=== PATIENT | male | born 1940 | race Caucasian/White ===

== ENCOUNTER 2017-06-13 10:07 | Emergency (ER) | payer OTHER ==
[~2017-06-13] VITALS: Ht 172.7 cm; Wt 73.9 kg
--- NOTE | ~2017-06-13 | EKG ---
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 : 1940 Requested By: Dale Ledesma Order Number: [id number] MD: Shawn Kim Measurements Intervals [place] Rate: 80 P: 10 HI: 126 QRS: 13 QRSD: 114 T: 5 QT: 378 QTc: 436 Interpretive Statements Sinus rhythm Multiple ventricular premature complexes Early R-wave progression Compared to ECG 05/29/2017 18:17:23 No significant change was found Electronically Signed On 06-13-2017 15:58:32 [employer] by Shawn Kim [email or web address] <ELECTRONICALLY SIGNED> By: Shawn Kim MD, [facility] 06/13/17 1558 [id number] [id number] Shawn Kim MD, FACC /EPI
[~2017-06-13 10:07] MED LIST: ASPIRIN81 M2 PO; CEPHALEXIN500 MG; HYDROCHLOROTH12.5 M2 PO; HYDROCHLOROTHIA25 M2 PO; NORCO 5-325 TA1 EACH PO; PEPCID20 MG PO; TOPROL XL25 MG PO; TRAMADOL 50 MG50 MG PO; TRIAMTERENE-HC1 EAC1 PO; TYLENOL325 MG PO
[2017-06-13 10:33] LABS: HEMATOCRIT 40.9 % (42.0-52.0); MCH 32.9 pg (26.0-34.0); MCHC 34.4 g/dL (28.0-37.0); MCV 95.7 fL (80.0-100.0); RBC 4.27 mil/uL (4.50-6.00); RDW 13.6 % (10.5-14.5); WBC 7.2 thou/uL (4.0-11.0)
[2017-06-13 10:43] LABS: ANION GAP 6 mmol/L (7-16); BUN 17 mg/dL (7-18); CALCIUM 9.2 mg/dL (8.5-10.1); CHLORIDE 104 mmol/L (98-107); CO2 28 mmol/L (21-32); GLUCOSE 112 mg/dL (74-106); POTASSIUM 3.8 mmol/L (3.5-5.1); SODIUM 138 mmol/L (136-145)
[2017-06-13 10:52] LABS: TROPONIN-I < 0.04 ng/mL (<0.06)
== END 2017-06-13 14:02 | disposition home or self-care (01) ==
LOC: ER 10:07
PROVIDERS: Emergency Medicine
DX: R42 Dizziness and giddiness (principal); I10 Essential (primary) hypertension; Z98.890 Other specified postprocedural states; Z90.49 Acquired absence of other specified parts of digestive tract; Z88.6 Allergy status to analgesic agent; Z91.010 Allergy to peanuts; Z88.0 Allergy status to penicillin; Z91.013 Allergy to seafood

== ENCOUNTER 2018-09-21 23:05 | Emergency (ER) | payer OTHER ==
[~2018-09-21] VITALS: Ht 170.2 cm; Wt 71.2 kg
[2018-09-21 23:58] LABS: HEMOGLOBIN 14.3 gm/dL (14.0-18.0); MCH 33.2 pg (26.0-34.0); MCV 97.6 fL (80.0-100.0); PLATELET COUNT 188 thou/uL (150-400); RDW 13.7 % (10.5-14.5); WBC 6.3 thou/uL (4.0-11.0)
[2018-09-22 00:02] LABS: ANION GAP 7 mmol/L (7-16); BUN 21 mg/dL (7-18); CALCIUM 9.1 mg/dL (8.5-10.1); CHLORIDE 103 mmol/L (98-107); CO2 28 mmol/L (21-32); GLUCOSE 106 mg/dL (74-106); SODIUM 138 mmol/L (136-145)
[2018-09-22 00:10] LABS: ALBUMIN 3.9 g/dL (3.4-5.0); SGOT 19 U/L (15-37); SGPT 23 U/L (30-65); TOTAL BILIRUBIN 0.3 mg/dL (<0.1-1.0); TOTAL PROTEIN 7.3 g/dL (6.4-8.2); TROPONIN-I <0.06 ng/mL (<0.06)
[2018-09-22 00:21] LABS: URINE BILIRUBIN NEGATIVE (Negative); URINE BLOOD NEGATIVE (Negative); URINE CLARITY CLEAR; URINE COLOR YELLOW; URINE GLUCOSE-RANDOM* NEGATIVE (Negative); URINE KETONES NEGATIVE (Negative); URINE LEUKOCYTES-REFLEX NEGATIVE (Negative); URINE NITRITE-REFLEX NEGATIVE (Negative); URINE PROTEIN (DIPSTICK) NEGATIVE (Negative); URINE SPECIFIC GRAVITY <= 1.005 (1.005-1.035); URINE UROBILINOGEN 0.2 E.U./dl (0.2-1.0)
[2018-09-22 00:52] LABS: ABSOLUTE NEUTROPHILS 4.1 thou/uL (1.4-8.2)
[2018-09-22 00:53] LABS: ANISOCYTOSIS 1+; PLATELET ESTIMATE NORMAL; POLYCHROMASIA 1+
[2018-09-22 03:20] VITALS: BP 153/67
--- NOTE | 2018-09-22 08:06 | EKG ---
[facility] [place] [address] ELECTROCARDIOGRAM REPORT Name: DEEPIKA ABREU 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 : 1940 Requested By: Jerord Mason Order Number: [id number] MD: Shawn Kim Measurements Intervals [place] Rate: 76 P: 0 CT: 133 QRS: -10 QRSD: 108 T: -3 QT: 361 QTc: 406 Interpretive Statements Sinus rhythm Multiform ventricular premature complexes Abnormal R-wave progression, early transition Compared to ECG 06/13/2017 10:18:43 No significant changes Electronically Signed On 09-22-2018 8:06:42 CDT by Shawn Kim [email or web address] ��������������������������������������������� <ELECTRONICALLY SIGNED> ���������������������������������������� By: Shawn Kim MD, [facility] ��������������������������������������������� 09/22/18 0806 Shawn Kim MD, FAC /EPI
== END 2018-09-22 03:20 | disposition short-term general hospital (02) ==
LOC: ER 23:05
PROVIDERS: Emergency Medicine
DX: I62.00 Nontraumatic subdural hemorrhage, unspecified (principal); D18.1 Lymphangioma, any site; I10 Essential (primary) hypertension; Z96.641 Presence of right artificial hip joint; Z88.0 Allergy status to penicillin; Z88.6 Allergy status to analgesic agent; Z91.013 Allergy to seafood; Z91.010 Allergy to peanuts; Z91.041 Radiographic dye allergy status; Z91.018 Allergy to other foods

== ENCOUNTER 2018-10-30 23:40 | Emergency (ER) | payer OTHER ==
[~2018-10-30] VITALS: Ht 172.7 cm; Wt 72.6 kg
[2018-10-31 00:42] LABS: HEMATOCRIT 38.9 % (42.0-52.0); HEMOGLOBIN 13.3 gm/dL (14.0-18.0); MCHC 34.2 g/dL (28.0-37.0); MCV 96.5 fL (80.0-100.0); PLATELET COUNT 196 thou/uL (150-400); RBC 4.03 mil/uL (4.50-6.00); RDW 13.8 % (10.5-14.5); WBC 5.7 thou/uL (4.0-11.0)
[2018-10-31 00:49] LABS: ANION GAP 8 mmol/L (7-16); BUN 19 mg/dL (7-18); CALCIUM 8.9 mg/dL (8.5-10.1); CHLORIDE 100 mmol/L (98-107); CO2 26 mmol/L (21-32); CREATININE 0.9 mg/dL (0.7-1.3); GLUCOSE 103 mg/dL (74-106); POTASSIUM 3.7 mmol/L (3.5-5.1); SODIUM 134 mmol/L (136-145)
[2018-10-31 00:59] LABS: ALBUMIN 3.7 g/dL (3.4-5.0); SGOT 20 U/L (15-37); SGPT 23 U/L (30-65); TOTAL BILIRUBIN 0.4 mg/dL (<0.1-1.0); TOTAL PROTEIN 6.7 g/dL (6.4-8.2); TROPONIN-I <0.06 ng/mL (<0.06)
[2018-10-31 01:23] LABS: ABSOLUTE NEUTROPHILS 3.8 thou/uL (1.4-8.2)
[2018-10-31 01:24] LABS: PLATELET ESTIMATE NORMAL
[2018-10-31 03:13] VITALS: BP 158/68
--- NOTE | 2018-11-01 08:46 | EKG ---
[place] [address] 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 : 1940 Requested By: Brenda Maciel Order Number: [id number] MD: Shawn Kim Measurements Intervals [place] Rate: 75 P: 7 NV: 136 QRS: 4 QRSD: 108 T: 8 QT: 380 QTc: 425 Interpretive Statements Sinus rhythm Normal tracing Compared to ECG 09/22/2018 00:32:16 Ventricular premature complex(es) no longer present Electronically Signed On 11-01-2018 8:46:34 CDT by Shawn Kim [email or web address] ��������������������������������������������� <ELECTRONICALLY SIGNED> ���������������������������������������� By: Shawn Kim MD, [facility] ��������������������������������������������� 11/01/18 0846 0018 Shawn Kim MD, FACC /EPI
== END 2018-10-31 03:18 | disposition home or self-care (01) ==
LOC: ER 23:40
PROVIDERS: Student in an Organized Health Care Education/Training Program
DX: E86.0 Dehydration (principal); I10 Essential (primary) hypertension; Z88.6 Allergy status to analgesic agent; Z91.041 Radiographic dye allergy status; Z88.0 Allergy status to penicillin; Z91.013 Allergy to seafood; Z91.018 Allergy to other foods; Z91.010 Allergy to peanuts; Z96.641 Presence of right artificial hip joint; Z90.49 Acquired absence of other specified parts of digestive tract

== ENCOUNTER 2019-03-13 22:54 | Emergency (ER) | payer OTHER ==
[~2019-03-13] VITALS: Ht 172.7 cm; Wt 72.6 kg
[2019-03-13 23:44] LABS: HEMATOCRIT 40.7 % (42.0-52.0); HEMOGLOBIN 13.7 gm/dL (14.0-18.0); MCH 33.1 pg (26.0-34.0); MCHC 33.5 g/dL (28.0-37.0); MCV 98.8 fL (80.0-100.0); PLATELET COUNT 242 thou/uL (150-400); RBC 4.12 mil/uL (4.50-6.00); RDW 13.5 % (10.5-14.5); WBC 7.1 thou/uL (4.0-11.0)
[2019-03-13 23:53] LABS: ANION GAP 9 mmol/L (7-16); BUN 20 mg/dL (7-18); CALCIUM 9.3 mg/dL (8.5-10.1); CHLORIDE 96 mmol/L (98-107); CO2 26 mmol/L (21-32); GLUCOSE 97 mg/dL (74-106); POTASSIUM 4.1 mmol/L (3.5-5.1); SODIUM 131 mmol/L (136-145)
[2019-03-14 00:01] LABS: TROPONIN-I <0.06 ng/mL (<0.06)
[2019-03-14 00:08] LABS: ABSOLUTE NEUTROPHILS 4.3 thou/uL (1.4-8.2); ATYPICAL LYMPHS 1 %
[2019-03-14 03:20] VITALS: BP 145/80
--- NOTE | 2019-03-14 08:02 | EKG ---
[address] [address] [facility] [place] [address] ELECTROCARDIOGRAM REPORT Name: DEEPIKA ABREU [facility] [id number] ������������������ Admission: 03/13/19 ������������������ Attend Phys: Discharge: 03/14/19 ������������������ Date of : 42 Report #: [id number] ����������������������������������������������������������������� [id number] THIS REPORT FOR: //name// 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 : 1940 Requested By: Abdi Mcconnell Order Number: [id number] MD: Milad Diez Measurements Intervals [place] Rate: 88 P: 23 UT: 137 QRS: 4 QRSD: 106 T: 30 QT: 350 QTc: 424 Interpretive Statements Sinus rhythm Probable left atrial enlargement Compared to ECG 10/31/2018 00:18:18 No significant changes Electronically Signed On 03-14-2019 8:01:46 CDT by Milad Diez [email or web address] ��������������������������������������������� <ELECTRONICALLY SIGNED> ���������������������������������������� By: Milad Diez MD ��������������������������������������������� 03/14/19 0801 2255 2255 MD INDER Urrutia
== END 2019-03-14 03:20 | disposition home or self-care (01) ==
LOC: ER 22:54
PROVIDERS: Emergency Medicine
DX: R07.9 Chest pain, unspecified (principal); I10 Essential (primary) hypertension; Z96.641 Presence of right artificial hip joint; Z88.0 Allergy status to penicillin; Z88.6 Allergy status to analgesic agent; Z88.8 Allergy status to other drugs, medicaments and biological substances; Z91.013 Allergy to seafood; Z91.018 Allergy to other foods

== ENCOUNTER → 2020-09-10 | Outpatient (CLI) | payer OTHER ==
--- NOTE | 2020-09-10 15:06 | 2DMMODE ---
[facility] [place] [address] 2 D/M-MODE ECHOCARDIOGRAM Name: DEEPIKA ABREU Mar[place] Room #: REG [facility].#: [id number] Admission: 09/10/20 Attend Phys: Richard Herzog MD Discharge: Date of : 42 Report #: [id number] THIS REPORT FOR: cc: Froylan Card MD, Steven M. MD Lundgren, Craig H. MD [facility] ~ APPROVED REPORT Study performed: 09/10/2020 12:36:03 EXAM: Comprehensive 2D, Doppler, and color-flow Echocardiogram Patient Location: Out-Patient Room #: 2 Status: routine BSA: 1.83 HR: 78 bpm BP: 132/68 mmHg Rhythm: NSR Other Information Study Quality: Good Indications Arrhythmia CAD 2D Dimensions RVDd: 40.90 mm IVC: 15.00 mm Volumes Left Atrial Volume (Systole) Single Plane 4CH: 65.27 mL Single Plane 2CH: 49.02 mL LA ESV Index: 33.00 mL/m2 Aortic Valve AoV Peak Tae.: 1.30 m/s AO Peak Gr.: 6.81 mmHg LVOT Max P.64 mmHg LVOT Max V: 1.19 m/s Mitral Valve E/A Ratio: 0.7 MV Decel. Time: 263.14 ms MV E Max Tae.: 0.58 m/s [facility] [address] [place] [address] 2 D/M-MODE ECHOCARDIOGRAM Name: DEEPIKA ABREU Room #: REG [facility]#: [id number] Admission: 09/10/20 Attend Phys: Richard Herzog MD Discharge: Date of : 42 Report #: [id number] MV A Tae.: 0.82 m/s MV PHT: 76.31 ms IVRT: 110.73 ms Pulmonary Valve PV Peak Tae.: 1.09 m/s PV Peak Gr.: 4.79 mmHg Pulmonary Vein P Vein S: 0.59 m/s P Vein A: 0.32 m/s P Vein D: 0.50 m/s P Vein A Dur.: 110.7 msec P Vein S/D Ratio: 1.18 Tricuspid Valve TR Peak Tae.: 4.27 m/s TR Peak Gr.: 72.83 mmHg PA Pressure: 45.00 mmHg Left Ventricle The left ventricle is normal size. There is normal LV segmental wall motion. There is normal left ventricular wall thickness. The left ventricular systolic function is normal. The left ventricular ejection fraction is within the normal range. LVEF is 55-60%. Mild diastolic dysfunction Right Ventricle The right ventricle is normal size. The right ventricular systolic function is normal. Atria Left atrium is at the upper limits of normal. The right atrium size is normal. Aortic Valve The aortic valve is mildly sclerotic. Mild aortic regurgitation. There is no aortic valvular stenosis. Mitral Valve The mitral valve is normal in structure. Mild mitral regurgitation. No evidence of mitral valve stenosis. Tricuspid Valve The tricuspid valve is normal in structure. There is mild tricuspid regurgitation. Estimatedf PAP 40 mmHg. Pulmonic Valve The pulmonary valve is normal in structure. There is no pulmonic [facility] [address] [place] [address] 2 D/M-MODE ECHOCARDIOGRAM Name: DEEPIKA ABREU Room #: REG [facility]#: [id number] Admission: 09/10/20 Attend Phys: Richard Herzog MD Discharge: Date of : 42 Report #: [id number] valvular regurgitation. Great Vessels The aortic root is normal in size. IVC is normal in size and collapses <50% with inspiration. Pericardium There is no pericardial effusion. <Conclusion> The left ventricular systolic function is normal. There is normal LV segmental wall motion. LVEF is 55-60%. Mild diastolic dysfunction The aortic valve is mildly sclerotic. Mild aortic regurgitation, no stenosis. The mitral valve is normal in structure. Mild mitral regurgitation. There is mild tricuspid regurgitation. Estimated pulmonary artery pressure of 40 mmHg. There is no pericardial effusion. <ELECTRONICALLY SIGNED> By: Shawn Kim MD, [facility] 09/10/20 1505 1505 1505 Shawn Kim MD, FACC /INF
== END ==
LOC: CV 12:49
PROVIDERS: ATTEND Orthopaedic Surgery
DX: I08.3 Combined rheumatic disorders of mitral, aortic and tricuspid valves (principal); I25.9 Chronic ischemic heart disease, unspecified; R55 Syncope and collapse